=== PATIENT | female | born 1980 | race Caucasian/White ===

== ENCOUNTER 2021-07-27 13:16 | Emergency (ER) | payer OTHER, SELFPAY ==
[2021-07-27] VITALS (16 sets, daily range): BP systolic 97–145; BP diastolic 58–99; PULSE 61–76; RESP 15–19; TEMP 36.9; O2SAT 99–100; BMI 58.6
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
[2021-07-27 13:57] LABS: Basophils # 0.1 K/mm3 (0-0.2); Basophils % 0.6 % (0.1-2.0); Eosinophils # 0.4 K/mm3 (0.0-0.4); Eosinophils % 4.4 % (0.1-12.0); Hematocrit 40.3 % (37.0-47.0); Hemoglobin 13.2 g/dL (12.2-16.2); Lymphocytes # 1.3 K/mm3 (0.7-4.5); Lymphocytes % 13.6 % (10-50); Mean Corpuscular HGB Conc 32.7 g/dL (31.8-35.4); Mean Corpuscular Hemoglobin 30.3 pg (27.0-31.2); Mean Corpuscular Volume 92.6 fl (81-99); Mean Platelet Volume 7.2 fl (7.4-10.4); Monocytes # 0.5 K/mm3 (0.1-1.0); Monocytes % 4.7 % (1.7-9.3); Neutrophils # 7.4 K/mm3 (1.8-7.8); Neutrophils % 76.6 % (37.0-80.0); Platelet Count 259 K/mm3 (142-424); Red Blood Count 4.35 M/mm3 (4.20-5.40); Red Cell Distribution Width 13.5 % (11.5-17.5); White Blood Count 9.6 K/mm3 (4.8-10.8)
[2021-07-27 14:07] LABS: Chloride 112 mmol/L (98-107); Potassium 3.9 mmoL/L (3.5-5.1); Sodium 138 mmol/L (136-145)
[2021-07-27 14:09] LABS: Alanine Aminotransferase 21 U/L (12-78); Alkaline Phosphatase 34 U/L (38-126); Aspartate Amino Transferase 44 U/L (14-36); Bilirubin,Total 0.4 mg/dl (0.2-1.3); Blood Urea Nitrogen 24 mg/dl (7-17); Creatinine Clearance Estimated 59 mL/min (50-200); Estimated Glomerular Filt Rate 69 ml/min (>60); GFR (African American) 83 ML/MIN (>60)
[2021-07-27 14:10] LABS: Albumin Level 3.1 g/dl (3.5-5.0); Albumin/Globulin Ratio 1.3 (1.1-1.8); Anion Gap 6.9 mEq/L (5-15); Calcium 7.6 mg/dl (8.4-10.2); Carbon Dioxide 23 mmol/L (22.0-30.0); Globulin 2.3 g/dL (1.3-3.2); Glucose 82 mg/dl (74-100); Lipase 138 U/L (23-300); Total Protein,Serum 5.4 g/dl (6.3-8.2)
--- NOTE | 2021-07-27 15:24 | PC.NURSE ---
Dr. Miguel in OR at this time. Left message with Stephanie to have him call ER MD when he is available
--- NOTE | 2021-07-27 15:35 | PC.NURSE ---
Spoke with Stephanie who advised that they just started the procedure and he could be in there for 2-3 hrs. Notified
--- NOTE | 2021-07-27 20:09 | PC.NURSE ---
Family member has been at bedside with patient. We have been in the room multiple times throughout the shift to update patient on POC and speak with her about what was going on in the ED and why there was a delay. PT has been understanding. Pt has been medicated with pain meds per MAR and has had no issues/complaints at this time.
--- NOTE | 2021-07-27 22:22 | [facility].EDGENADL ---
ED Disposition Clinical Impression: Bimalleolar avulsion fracture of right ankle Ribs, multiple fractures Qualifiers: Encounter type: initial encounter Fracture type: closed Laterality: left Qualified Code(s): S22.42XA - Multiple fractures of ribs, left side, initial encounter for closed fracture Metatarsal bone fracture Qualifiers: Encounter type: initial encounter Metatarsal bone: unspecified metatarsal Fracture type: closed Fracture alignment: nondisplaced Laterality: left Qualified Code(s): S92.302A - Fracture of unspecified metatarsal bone(s), left foot, initial encounter for closed fracture Disposition: Home, Self-Care Condition on Discharge: Good Instructions: Trauma Additional Instructions: Follow-up with your orthopedic surgeon within the next 1 to 2 days as you will need surgery for the bimalleolar fracture. Keep the splint on, clean, dry until following up with orthopedics; it is also important to follow up with your PCP for the rib fractures. Use crutches to ambulate, avoid bearing weight in the right foot. Take pain medication as directed for severe pain, okay to take Tylenol, Motrin for mild pain. Return to ED with new, worsening, concerning symptoms. Prescriptions: Oxycodone HCl [Oxycodone 5mg tab (IR)] 5 mg PO Q8 4 Days #12 tab Prescription Printed Referrals: Gilbert Burt DO [Primary Care Provider] - - Critical Care Critical Care Time: No Attestation: On 07/27/21, the high probability of a clinically significant, sudden or life threatening deterioration of the following system(s) required my full and direct attention, intervention and personal management. The time I documented below is in addition to time spent performing reported procedures but includes the following listed in this critical care notation. Medical Decision Making - Medical Records Medical records reviewed: Yes: I reviewed the patient's medical records. - Kwan Inquiry Pt receiving controlled substance: No Vital Signs: 07/27/21 13:17 07/27/21 13:30 07/27/21 15:01 Temperature 98.5 F Temperature Source Oral Pulse Rate 67 68 Pulse Rate [Right] 63 Respiratory Rate 16 16 18 Blood Pressure 117/76 144/81 H Blood Pressure [Right Arm] 120/99 H Blood Pressure Mean 89 104 Blood Pressure Mean [Right Arm] 106 Blood Pressure Source [Right Arm] Automatic Cuff Blood Pressure Position [Right Arm] Sitting 02 Sat by Pulse Oximetry 100 100 100 Oxygen Delivery Method Room Air 07/27/21 15:30 07/27/21 16:01 07/27/21 17:00 Temperature Temperature Source Pulse Rate 61 69 68 Pulse Rate [Right] Respiratory Rate 19 18 16 Blood Pressure 113/86 140/58 L 145/62 H Blood Pressure [Right Arm] Blood Pressure Mean 95 85 Blood Pressure Mean [Right Arm] Blood Pressure Source [Right Arm] Blood Pressure Position [Right Arm] 02 Sat by Pulse Oximetry 100 100 100 Oxygen Delivery Method 07/27/21 17:30 07/27/21 17:45 07/27/21 18:22 Temperature Temperature Source Pulse Rate 63 64 64 Pulse Rate [Right] Respiratory Rate 17 17 15 Blood Pressure 138/71 108/77 L 108/77 L Blood Pressure [Right Arm] Blood Pressure Mean 86 Blood Pressure Mean [Right Arm] Blood Pressure Source [Right Arm] Blood Pressure Position [Right Arm] 02 Sat by Pulse Oximetry 100 100 100 Oxygen Delivery Method 07/27/21 18:25 07/27/21 18:31 07/27/21 19:00 Temperature Temperature Source Pulse Rate 67 68 63 Pulse Rate [Right] Respiratory Rate 17 18 15 Blood Pressure 105/78 L 124/75 97/61 L Blood Pressure [Right Arm] Blood Pressure Mean 64 91 73 Blood Pressure Mean [Right Arm] Blood Pressure Source [Right Arm] Blood Pressure Position [Right Arm] 02 Sat by Pulse Oximetry 100 100 99 Oxygen Delivery Method 07/27/21 19:30 07/27/21 20:06 07/27/21 20:30 Temperature Temperature Source Pulse Rate 66 76 72 Pulse Rate [Right] Respiratory Rate Blood Pressure 112/70 1
== END 2021-07-27 23:08 | disposition home or self-care (01) ==
PROVIDERS: Emergency Provider Emergency Medicine; PCP Family Medicine
DX: S82.844A Nondisplaced bimalleolar fracture of right lower leg, initial encounter for closed fracture (principal); V47.0XXA Car driver injured in collision with fixed or stationary object in nontraffic accident, initial encounter; Y92.488 Other paved roadways as the place of occurrence of the external cause; S22.42XA Multiple fractures of ribs, left side, initial encounter for closed fracture; S91.012A Laceration without foreign body, left ankle, initial encounter; Z23 Encounter for immunization
CPT/HCPCS: 12002; 29515; 71045; 71275; 72170; 73030; 73090; 73110; 73130; 73560; 73590; 73610; 73620; 74174; 80053; 83690; 85025; 90714; 96372; 96374; 96375; 99283; J2405; Q9967